=== PATIENT | female | born 2000 | race Caucasian/White ===

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

== ENCOUNTER 2023-01-04 02:42 | Emergency (ER) | payer BC, SELFPAY ==
[~2023-01-04] VITALS: Ht 149.9 cm; Wt 43.7 kg
[2023-01-04 02:44] VITALS: BP 134/84
== END 2023-01-04 04:53 | disposition left against medical advice (07) ==
LOC: M ED 02:42
DX: Z53.21 Procedure and treatment not carried out due to patient leaving prior to being seen by health care provider (principal)